=== PATIENT | female | born 1990 | race Caucasian/White ===

== ENCOUNTER 2018-01-04 10:36 | Emergency (ER) | END 2018-01-04 14:51 | disposition home or self-care (01) ==

== ENCOUNTER 2018-04-11 13:52 | Outpatient (CLI) | payer OTHER ==
[~2018-04-11] VITALS: Ht 160 cm; Wt 88.6 kg
[~2018-04-11 13:52] MED LIST: BEN25 PO; CEPH-443 PO
[2018-04-11 14:08] VITALS: Ht 160 cm; Wt 88.6 kg
[2018-04-11 14:10] VITALS: BP 105/57; PULSE 83; RESP 18
[2018-04-11] MEDS ORDERED: FERR325T5 PO (14:13)
[2018-04-11] MEDS ORDERED: PNV11TAB PO (14:13)
[2018-04-11] MEDS ORDERED: ACETAMINOPHEN 500 MG TAB PO STA (16:33)
[2018-04-11] MEDS ORDERED: ACETAMINOPHEN 500 MG TAB ONE (16:40)
--- NOTE | 2018-04-11 18:53 | PN ---
Triage Information Date/Time 04/11/2017 Reason for visit: Headache, blurred vision Weeks of Gestation 34 weeks /Para 3 para 2 Diabetes: none Hypertention: none Additional information 27-year-old with IUP at 34 weeks and twin gestation care with Dr. Garcia. Resented to triage with complaint of headache, blurred vision. She denies any leaking of fluid vaginal bleeding decreased movement .. Denies any history of hypertension. Reports history of gestational diabetes but has not been checking her blood sugars. Patient complains of lower abdominal cramps. Denies any urinary symptoms. Reports her headaches 7 out of 10 Objective Vital Signs Date Temp Pulse Resp B/P (MAP) Pulse Ox O2 O2 Flow FiO2 Time Delivery Rate 04/11/18 98.6 83 18 105/57 Room Air 14:10 (73) Heart Rate: 130's Heart Rate Comments Both fetuses category 1 No contraction Contractions: None Exam General appearance: Alert and oriented x4 appears to be in mild distress. Abdomen: Soft, fundal height larger than dates consistent with twin gestation . Slight suprapubic tenderness noted. No rebound tenderness, no guarding, no rigidity, no CVA tenderness NST: Category 1 for both fetuses and no contraction noted on the monitor neuro exam within normal limits Blood pressures during monitoring within normal. No elevated blood pressure noted Patient was given thousand milligrams of Tylenol with hydration PIH panel performed and showed normal UA consistent with UTI Patient blood sugar: 93 Still continues to have headache rates it 7 out of 10. Results/Medications Result Diagram: 04/11/18 1530 04/11/18 1530 Results 24 hrs Laboratory Tests Test 04/11/18 15:07 04/11/18 15:30 04/11/18 16:45 Urine Color HATTIE Urine Clarity CLOUDY A Urine pH 6.0 Urine Specific Sumner 1.023 Urine Ketones NEGATIVE Urine Nitrite NEGATIVE Urine Bilirubin NEGATIVE Urine Urobilinogen NEGATIVE Urine Leukocyte Esterase 3+ H Urine Microscopic RBC 3 Urine Microscopic WBC 28 H Urine Squamous Epithelial Cells MODERATE Urine Bacteria FEW A Urine Mucus MANY A Urine Hemoglobin NEGATIVE Urine Glucose NEGATIVE Urine Total Protein 1+ H White Blood Count 9.6 Red Blood Count 4.11 L Hemoglobin 9.6 L Hematocrit 31.7 L Mean Corpuscular Volume 77.1 L Mean Corpuscular Hemoglobin 23.4 L Mean Corpuscular Hemoglobin Concent 30.3 L Red Cell Distribution Width 16.2 H Platelet Count 239 Mean Platelet Volume 9.8 Immature Granulocytes % 1.000 H Neutrophils % 57.9 Lymphocytes % 20.5 Monocytes % 5.4 Eosinophils % 14.7 H Basophils % 0.5 Nucleated Red Blood Cells % 0.0 Immature Granulocytes # 0.100 H Neutrophils # 5.5 Lymphocytes # 2.0 Monocytes # 0.5 Eosinophils # 1.4 H Basophils # 0.1 Nucleated Red Blood Cells # 0.0 Prothrombin Time 12.3 Prothrombin Time Ratio 1.0 INR International Normalized Ratio 0.90 Activated Partial Thromboplast Time 26.9 Fibrinogen 544.0 H Sodium Level 136 Potassium Level 3.7 Chloride Level 103 Carbon Dioxide Level 23 Anion Gap 10 Blood Urea Nitrogen 4 L Creatinine 0.39 L Est Glomerular Filtrat Rate mL/min > 60 Glucose Level 124 Uric Acid 4.3 Calcium Level 8.8 Total Bilirubin 0.0 L Direct Bilirubin 0.00 Indirect Bilirubin 0.0 Aspartate Amino Transf (AST/SGOT) 19 Alanine Aminotransferase (ALT/SGPT) 15 Alkaline Phosphatase 129 H Total Protein 6.4 Albumin 3.3 Globulin 3.10 Albumin/Globulin Ratio 1.06 Bedside Glucose 97 Imaging Results PROCEDURE: US OB. Ultrasound cervix CLINICAL INDICATION: Low YU, pain TECHNIQUE: Multiple sonographic images of the pelvis were obtained. The images were reviewed on a PACS workstation. In addition, transvaginal images of the cervix were obtained. COMPARISON: No prior studies are available for comparison. FINDINGS: There is a twin live intrauterine gestation. The cervix is closed and measures 3.9 cm in length. Twin A Cardiac activity is present with 135 beats per minute. There is a vertex presentation. The placenta is anterior. MVP = 6.2 cm Twin B Cardiac activity is present with 135 beats per minute. There is a transverse maternal left presentation. The placenta is anterior. MVP= 5.1 cm RPTAT: AA . IMPRESSION: Normal MVP for twin gestation . Cervix is closed measures 3.9 cm in lengt Disposition: Discharge Assessment/Plan IUP at 34 weeks Twin gestation No evidence of labor or PIH Headache and blurred vision, unclear etiology GDM, discussed with the patient needs to go back tomorrow to her primary OB office to get education for blood sugar monitoring and diet education Risk of uncontrolled diabetes during discussed with the patient in detail Patient was advised to go to the emergency room she continued to have headache. Currently no evidence of PIH Amniotic fluid normal Cramps, no evidence of labor. Symptoms related to UTI Discussed with patient regarding taking antibiotics, Keflex 500 mg 4 times daily for 7 days prescribed Adequate hydration discussed with the patient labor precautions kick count and presents a precaution discussed in detail with the patient. She was advised to go to emergency room if her symptoms does not really resolve and to present to triage if she has any leaking of fluid, vaginal bleeding decreased movement or any other symptoms. Follow-up with primary OB office within 24 hours after discharge from the hospital recommended and discussed All questions were answered to patient's best satisfaction and patient verbalized understanding. BRIAN WATKINS MD Apr 11, 2018 18:53
--- NOTE | 2018-04-11 18:56 | TRIAGE ---
OB Triage Datetime Report Generated by CPN: 04/11/2018 18:55 Datetime: 04/11/2018 17:59 Labor Evaluation Frequency: x2 Monitor Mode: External Duration (sec)2399: 90-100 Quality: Mild Resting Tone Panora: Relaxed Heart Rate FHR Baseline Rate: 125 Monitor Mode: External US FHR Baseline Changes: No Baseline Change Variability: Moderate 6-25 bpm Accelerations: 15X15 Decelerations: None Category: Category I Datetime: 04/11/2018 17:30 Pain Assessment Pain Scale: 7 Pain Presence: Intermittent Pain Type: Ache Pain Location: Head Pain Relief Measures: Comfort Measures Pain Assessment Comments: pt stays she still has a headache Datetime: 04/11/2018 17:02 Labor Evaluation Frequency: x1 Monitor Mode: External Duration (sec)2399: 50 Quality: Mild Resting Tone Panora: Relaxed Heart Rate FHR Baseline Rate: 130 Monitor Mode: External US FHR Baseline Changes: No Baseline Change Variability: Moderate 6-25 bpm Accelerations: 15X15 Decelerations: None Category: Category I Datetime: 04/11/2018 16:44 Bedside Blood Glucose: 97 Datetime: 04/11/2018 16:00 Labor Evaluation Frequency: x1 Monitor Mode: External Duration (sec)2399: 60 Quality: Mild Resting Tone Panora: Relaxed Heart Rate FHR Baseline Rate: 125 Monitor Mode: External US FHR Baseline Changes: No Baseline Change Variability: Moderate 6-25 bpm Accelerations: Prolonged Decelerations: None Category: Category I Datetime: 04/11/2018 15:00 Maternal Assessment Level of Consciousness: Fully Conscious DTR's/Clonus: DTRs 2+ Headache: Occipital; Frontal Blurred Vision: Yes Nausea/Vomiting: Denies RUQ Epigastric Pain: Denies Facial Edema: None Labor Evaluation Frequency: 5-12 Monitor Mode: External Duration (sec)2399: 50-70 Quality: Mild Pattern: Normal: <= 5 Contractions in 10 Minutes Resting Tone Panora: Relaxed Heart Rate FHR Baseline Rate: 130 Monitor Mode: External US FHR Baseline Changes: No Baseline Change Variability: Moderate 6-25 bpm Accelerations: 15X15 Decelerations: None Category: Category I Pain Assessment Pain Scale: 7 Pain Presence: Intermittent Pain Type: Ache Pain Location: Head Pain Goal: 10 Pain Relief Measures: Comfort Measures Vaginal Exam Membrane Status: Intact Datetime: 04/11/2018 14:18 Stage of : OB Triage Assessment Type: Triage Maternal Assessment Level of Consciousness: Fully Conscious DTR's/Clonus: DTRs 2+; No Clonus Headache: Denies Blurred Vision: No Respiratory Effort: Unlabored; Regular Rhythm; Equal Expansion Breath Sounds, Left: Clear and Equal Breath Sounds, Right: Clear and Equal Nausea/Vomiting: Denies RUQ Epigastric Pain: Denies Lower Extremities Edema: None Degree: None Upper Extremities Edema: None Degree: None Facial Edema: None Temperature Route: Oral Fall Risk Assessment History of Falling: (0) No Secondary Diagnosis: (0) No Ambulatory Aid: (0) Bedrest/Nurse Assist IV Therapy: (0) No Gait: (0) Normal/Bedrest/Immobile Mental Status: (0) Oriented to Own Ability Fall Score: 0 Fall Risk Score Definition: No Risk: No action required Labor Evaluation Frequency: x1 Monitor Mode: External Duration (sec)2399: 40 Quality: Mild Resting Tone Panora: Relaxed Heart Rate FHR Baseline Rate: 125 Monitor Mode: External US FHR Baseline Changes: No Baseline Change Variability: Moderate 6-25 bpm Accelerations: 15X15 Decelerations: None Category: Category I Pain Assessment Pain Scale: 7 Pain Presence: Intermittent Pain Type: Ache Pain Location: Head Pain Relief Measures: Comfort Measures Datetime: 04/11/2018 14:15 Time of Arrival: 04/11/2018 13:46 EGA: 34.0 Arrived By: Ambulatory Arrived From: Home Chief Complaint: headache, blurred vision, dizzines, feeling cold for 1.5 weeks. Also pt c/o eugenio malhotra lower abdominal pressure since this am Movement: Present Contractions: Denies/Absent Rupture of Membranes: Denies Vaginal Bleeding: None Vaginal Discharge: Denies Recent Sexual Intercouse: Yes Abdominal Trauma: Not Applicable Patient Complaints: Headache Initial Plan: ROSMERY
== END 2018-04-11 18:51 | disposition home or self-care (01) ==
LOC: OBT 13:52 → L-D 13:53 → OBT 18:51
PROVIDERS: ATTEND Obstetrics & Gynecology
DX: O26.893 Other specified pregnancy related conditions, third trimester (principal); Z3A.34 34 weeks gestation of pregnancy; R51 Headache; H53.8 Other visual disturbances
CPT/HCPCS: 76815; 76817; 80053; 81001; 82962; 84560; 85025; 85384; 85610; 85730; Z7500; Z7610; G0463

== ENCOUNTER 2018-04-20 16:18 | Inpatient (IN) | payer OTHER ==
[~2018-04-20] VITALS: Ht 160 cm; Wt 90.8 kg
[~2018-04-20 16:18] MED LIST changes: -BEN25 PO; +FERR325T5 PO; +PNV11TAB PO
[2018-04-20 16:36] VITALS: Ht 160 cm; Wt 90.8 kg
[2018-04-20 16:37] VITALS: BP 105/60; PULSE 89; RESP 20
[2018-04-20] MEDS ORDERED: ACET500C5 PO (16:41)
[2018-04-20] MEDS: LACTATED RINGER'S 1,000 ML IV SCH ×2 (20:54→21:33)
--- NOTE | 2018-04-20 23:52 | TRIAGE ---
OB Triage Datetime Report Generated by CPN: 04/20/2018 23:52 Datetime: 04/20/2018 23:43 Monitor Mode: External Monitor Mode: External US Datetime: 04/20/2018 23:08 Monitor Mode: External Monitor Mode: External US Datetime: 04/20/2018 22:45 Stage of : Antepartum Datetime: 04/20/2018 22:30 Stage of : Antepartum Datetime: 04/20/2018 22:00 Stage of : Antepartum Temperature Route: Oral Labor Evaluation Frequency: 4-6 Monitor Mode: External Duration (sec)2399: 50-70 Pattern: Normal: <= 5 Contractions in 10 Minutes Resting Tone Lillie: Relaxed Heart Rate FHR Baseline Rate: 135 Monitor Mode: External US Variability: Moderate 6-25 bpm Accelerations: 15X15 Decelerations: None Category: Category I Datetime: 04/20/2018 21:45 Assessment Type: Admission Assessment Vaginal Bleeding: None Maternal Assessment Level of Consciousness: Fully Conscious DTR's/Clonus: DTRs 2+; No Clonus Headache: Denies Blurred Vision: No Respiratory Effort: Unlabored; Regular Rhythm; Equal Expansion Breath Sounds, Left: Clear and Equal Breath Sounds, Right: Clear and Equal Nausea/Vomiting: Denies RUQ Epigastric Pain: Denies Facial Edema: None Fall Risk Assessment History of Falling: (0) No Secondary Diagnosis: (0) No Ambulatory Aid: (0) Bedrest/Nurse Assist IV Therapy: (20) Yes Gait: (0) Normal/Bedrest/Immobile Mental Status: (0) Oriented to Own Ability Fall Score: 20 Fall Risk Score Definition: No Risk: No action required Datetime: 04/20/2018 21:36 Monitor Mode: External Monitor Mode: External US Datetime: 04/20/2018 21:30 Arrived From: Triage Datetime: 04/20/2018 20:50 Monitor Mode: External Datetime: 04/20/2018 20:47 Monitor Mode: External Datetime: 04/20/2018 20:05 Monitor Mode: External Monitor Mode: External US Datetime: 04/20/2018 20:02 Monitor Mode: External Datetime: 04/20/2018 19:57 Monitor Mode: External US Datetime: 04/20/2018 19:55 Monitor Mode: External US Datetime: 04/20/2018 19:38 Stage of : Antepartum Datetime: 04/20/2018 19:18 Stage of : Antepartum Temperature Route: Oral Datetime: 04/20/2018 18:29 Labor Evaluation Frequency: X2 Duration (sec)2399: 40-60 Quality: Mild Pattern: Normal: <= 5 Contractions in 10 Minutes Resting Tone Lillie: Relaxed Heart Rate FHR Baseline Rate: 110 Monitor Mode: External US FHR Baseline Changes: No Baseline Change Variability: Moderate 6-25 bpm Accelerations: 15X15 Decelerations: None Category: Category I Pain Assessment Pain Presence: Constant Pain Type: Ache Pain Location: Head Pain Goal: 0 Datetime: 04/20/2018 18:00 Labor Evaluation Frequency: X2 Monitor Mode: External Duration (sec)2399: 40 Quality: Mild Pattern: Normal: <= 5 Contractions in 10 Minutes Resting Tone Lillie: Relaxed Heart Rate FHR Baseline Rate: 120 Monitor Mode: External US FHR Baseline Changes: No Baseline Change Variability: Moderate 6-25 bpm Accelerations: 10X10 Decelerations: None Category: Category I Pain Assessment Pain Presence: Constant Pain Type: Ache Pain Location: Head Pain Goal: 0 Datetime: 04/20/2018 17:29 Labor Evaluation Frequency: X1 Monitor Mode: External Duration (sec)2399: 60 Quality: Mild Pattern: Normal: <= 5 Contractions in 10 Minutes Resting Tone Lillie: Relaxed Heart Rate FHR Baseline Rate: 130 Monitor Mode: External US FHR Baseline Changes: No Baseline Change Category: Category I Pain Assessment Pain Presence: Constant Pain Type: Ache Pain Location: Head Pain Goal: 0 Vaginal Exam Membrane Status: Intact Datetime: 04/20/2018 17:00 Labor Evaluation Frequency: 0 Monitor Mode: External Heart Rate FHR Baseline Rate: 130 Monitor Mode: External US FHR Baseline Changes: No Baseline Change Variability: Moderate 6-25 bpm Accelerations: 15X15 Decelerations: None Category: Category I Pain Assessment Pain Presence: Constant Pain Type: Ache Pain Location: Head Datetime: 04/20/2018 16:24 Assessment Type: Triage Time of Arrival: 04/20/2018 16:09 EGA: 35.2 Arrived By: Ambulatory Arrived From: Home Chief Complaint: HEADACHE Movement: Present Contractions: Denies/Absent Rupture of Membranes: Denies Vaginal Bleeding: None Vaginal Discharge: Denies Recent Sexual Intercouse: Denies Abdominal Trauma: Not Applicable Patient Complaints: Other Time Provider Notified: 04/20/2018 19:03 Provider Notified: DR. LANCASTER Initial Plan: EFM, BPP, PIH LABS Maternal Assessment Level of Consciousness: Fully Conscious DTR's/Clonus: DTRs 2+; No Clonus Blurred Vision: No Respiratory Effort: Unlabored; Regular Rhythm; Equal Expansion Breath Sounds, Left: Clear and Equal Breath Sounds, Right: Clear and Equal Nausea/Vomiting: Denies RUQ Epigastric Pain: Present Lower Extremities Edema: None Degree: None Upper Extremities Edema: None Degree: None Facial Edema: None Fall Risk Assessment History of Falling: (0) No Secondary Diagnosis: (0) No Ambulatory Aid: (0) Bedrest/Nurse Assist IV Therapy: (0) No Gait: (0) Normal/Bedrest/Immobile Mental Status: (0) Oriented to Own Ability Fall Score: 0 Fall Risk Score Definition: No Risk: No action required Datetime: 04/11/2018 18:37 Labor Evaluation Frequency: x1 Monitor Mode: External Duration (sec)2399: 50 Quality: Mild Resting Tone Lillie: Relaxed Heart Rate FHR Baseline Rate: 125 Monitor Mode: External US FHR Baseline Changes: No Baseline Change Variability: Moderate 6-25 bpm Accelerations: 15X15 Decelerations: None Category: Category I Datetime: 04/11/2018 14:18 Fall Score: 0 Fall Risk Score Definition: No Risk: No action required Datetime: 04/11/2018 14:15 EGA: 34.0
[2018-04-21] MEDS: ACETAMINOPHEN 325 MG TAB PO PRN ×3 (00:37→10:45)
[2018-04-21] MEDS: LACTATED RINGER'S 1,000 ML IV SCH ×2 (05:14→12:56)
--- NOTE | 2018-04-21 12:41 | PREAC ---
Date/Time of Note Date/Time of Note DATE: 04/21/18 TIME: 12:39 Anesthesia Eval and Record Evaluation Time Pre-Procedure Interview DATE: 04/21/18 TIME: 12:39 Age 27 Sex female NPO: 8 hrs Preoperative diagnosis twin, headache oligorrhia Planned procedure C section Past Medical History Past Medical History: Includes GI: Obesity : Gestational age: (35.5) Surgery & Anesthesia Issues No known issue Meds Anticoagulation: No Beta Isma within 24 hr: No Reason Beta Isma not given: Pt. not on B-Isma Reported Medications Acetaminophen* (Tylophen*) 500 Mg Capsule, 500 MG PO prn, TAB 04/20/18 Ferrous Sulfate (Ferrous Sulfate) 325 Mg Tablet.dr, 325 MG PO DAILY 04/11/18 [id number] ( ) 1 Each Tablet, 1 TAB PO DAILY, TAB 04/11/18 Discontinued Scripts Cephalexin* (Keflex*) 500 Mg Capsule, 500 MG PO QID for 7 Days, CAP Prov:SHERIN HERRON PA-C 01/04/18 Current Medications Lactated Ringer's 1,000 ml @ 125 mls/hr Q8H IV Last administered on 04/21/18at 05:14; Admin Dose 125 MLS/HR; Start 04/20/18 at 19:47 Acetaminophen (Tylenol Tab) 650 mg Q4H PRN PO MILD PAIN(1-3)OR ELEVATED TEMP L ast administered on 04/21/18at 10:45; Admin Dose 650 MG; Start 04/21/18 at 01:00 Cefazolin Sodium/ Dextrose 50 ml @ 100 mls/hr ONCE IVPB ; Start 04/21/18 at 13:00; Status UNV Oxytocin/Lactated Ringer's 500 ml @ 125 mls/hr POST IV ; Start 04/21/18 at 13:00; Status UNV Oxytocin/Lactated Ringer's 500 ml @ 0 mls/hr ONCE PRN IV .VAGINAL BLEEDING; Start 04/21/18 at 13:00; Status UNV Methylergonovine Maleate (Methergine) 0.2 mg ONCE PRN IM .VAGINAL BLEEDING; Start 04/21/18 at 13:00; Status UNV Carboprost Tromethamine (Hemabate) 250 mcg ONCE PRN IM .VAGINAL BLEEDING; Start 04/21/18 at 13:00; Status UNV Misoprostol (Cytotec) 1,000 mcg ONCE PRN CO .VAGINAL BLEEDING; Start 04/21/18 at 13:00; Status UNV Meds reviewed: Yes Allergies Coded Allergies: No Known Allergy (Unverified , 01/04/18) Allergies Reviewed: Yes Labs/Studies Labs Reviewed: Reviewed by anesthesiologist Result Diagram: 04/21/18 0709 04/21/18 0709 Laboratory Tests 04/21/18 07:09 test: Positive Studies: ECG (n/a), CXR (n/a) Pre-procedure Exam Last vitals Vital Signs Date Temp Pulse Resp B/P (MAP) Pulse Ox O2 O2 Flow FiO2 Time Delivery Rate 04/20/18 98.2 89 20 105/60 Room Air 16:37 (75) Airway: Adequate mouth opening Mallampati: Mallampati I Teeth: Normal Lung: Normal Heart: Normal ASA Physical Status ASA physical status: 2 Emergency: None Planned Anesthetic Neuraxial: Spinal, Epidural Planned Pain Management Sub-arachniod narcotics Pre-operative Attestations Prior to commencing anesthesia and surgery, the patient was re-evaluated, there was verification of: *The patient's identity *The results of appropriate recent lab work and preoperative vital signs *The above evaluation not changing prior to induction *Anesthetic plan, risk benefits, alternative and complications discussed with patient/family; questions answered; patient/family understands, accepts and wishes to proceed. BALDEMAR CALDERON MD Apr 21, 2018 12:41
[2018-04-21] MEDS ORDERED: morphine SULFATE/PF (10 MG/10 ML) INJ ONE (12:59)
[2018-04-21] MEDS ORDERED: KETOROLAC 30 MG INJ ONE (12:59)
[2018-04-21] MEDS ORDERED: ONDANSETRON 4 MG INJ ONE (12:59)
[2018-04-21] MEDS ORDERED: METOCLOPRAMIDE 10 MG INJ ONE (12:59)
[2018-04-21] MEDS ORDERED: MISOPROSTOL 200 MCG TAB PR PRN ×2 (13:00→15:30)
[2018-04-21] MEDS ORDERED: CEFAZOLIN 2 GM/50 ML (PMX) 50 ML IVPB SCH (13:00)
[2018-04-21] MEDS ORDERED: OXYTOCIN 30 UNITS/LR 500 ML IV SCH ×2 (13:00→15:22)
[2018-04-21] MEDS ORDERED: CARBOPROST 250 MCG INJ IM PRN ×2 (13:00→15:30)
[2018-04-21] MEDS ORDERED: OXYTOCIN 30 UNITS/LR 500 ML IV PRN ×2 (13:00→15:30)
[2018-04-21] MEDS ORDERED: METHYLERGONOVINE 0.2 MG INJ IM PRN ×2 (13:00→15:30)
[2018-04-21] MEDS ORDERED: CITRIC ACID/NA CITRATE 30 ML CUP PO ONE (13:00)
[2018-04-21] MEDS ORDERED: PHENYLephrine (100 MCG/ML) 10ML SYG ONE (13:21)
[2018-04-21] MEDS ORDERED: FENTAnyl 50 MCG/ML VIAL ONE (13:52)
[2018-04-21] MEDS ORDERED: EPHEDrine 25 MG/5 ML SYG ONE (14:03)
[2018-04-21] MEDS ORDERED: OXYTOCIN 30 UNITS/LR 500 ML IV ONE (14:05)
--- NOTE | 2018-04-21 14:38 | PAC ---
Date/Time of Note Date/Time of Note DATE: 04/21/18 TIME: 14:37 Post-Anesthesia Notes Post-Anesthesia Note Last documented vital signs Vital Signs Date Temp Pulse Resp B/P (MAP) Pulse Ox O2 O2 Flow FiO2 Time Delivery Rate 04/20/18 98.2 89 20 105/60 Room Air 16:37 (75) Activity: WNL Respiratory function: WNL Cardiovascular function: WNL Mental status: Baseline Pain reasonably controlled: Yes Hydration appropriate: Yes Nausea/Vomiting absent: No BALDEMAR CALDERON MD Apr 21, 2018 14:38
[2018-04-21] MEDS ORDERED: DIPHENHYDRAMINE 50 MG INJ IV PRN ×3 (15:00→20:00)
[2018-04-21] MEDS ORDERED: morphine 2 MG INJ IV PRN ×6 (15:00→20:00)
[2018-04-21] MEDS ORDERED: KETOROLAC 30 MG INJ IV PRN ×2 (15:00→20:00)
[2018-04-21] MEDS ORDERED: morphine (1 MG/ML) 10ML SYRINGE IV PRN ×3 (15:00)
[2018-04-21] MEDS ORDERED: ONDANSETRON 4 MG INJ IV PRN ×3 (15:00→20:00)
[2018-04-21] MEDS ORDERED: NALOXONE (0.4 MG/ML) INJ IV PRN ×2 (15:00→20:00)
[2018-04-21] MEDS ORDERED: LACTATED RINGER'S 1,000 ML IV SCH (15:22)
[2018-04-21] MEDS ORDERED: NA PHOSPHATE/BIPHOS 133 ML ENEMA PR PRN (15:30)
[2018-04-21] MEDS ORDERED: METHYLERGONOVINE 0.2 MG TAB PO PRN (15:30)
[2018-04-21] MEDS ORDERED: LANOLIN HPA 1 PKT TOP PRN (15:30)
[2018-04-21] MEDS ORDERED: HYDROCODONE/APAP (5/325) TAB PO PRN ×2 (15:30)
--- NOTE | 2018-04-21 15:30 | SIPON ---
Date/Time of Note Date/Time of Note DATE: 04/21/18 TIME: 15:28 Operative Report Preoperative Diagnosis 35.5 weeks with dichorionic diamniotic twins Severe intractable headaches Oliguria Hyperreflexia with impending preeclampsia. Severe anemia Postoperative Diagnosis Same Operation/Procedure Performed Primary low segment transverse section Surgeon see signature line environmental engineering assistant Dr. TEIXEIRA Anesthesia: spinal Estimated blood loss: other Transfusion Required none Specimen Placenta Grafts/Implants none Complications none GIOVANNY LANCASTER MD Apr 21, 2018 15:30
--- NOTE | 2018-04-21 15:57 | OPR ---
DATE OF OPERATION: 04/21/2018 PROCEDURE: Primary low segment transverse section. PREOPERATIVE DIAGNOSES: 1. A 35.5 weeks' with dichorionic diamniotic twins. 2. Severe intractable headaches. 3. Oliguria. 4. Hyperreflexia with impending preeclampsia. 5. Severe anemia. POSTOPERATIVE DIAGNOSES: 1. A 35.5 weeks' with dichorionic diamniotic twins. 2. Severe intractable headaches. 3. Oliguria. 4. Hyperreflexia with impending preeclampsia. 5. Severe anemia. SURGEON: Giovanny Downing MD [employer] TEACHER: Shai Ricks MD ANESTHESIA: Clementine Mooney MD ESTIMATED BLOOD LOSS: About 800 mL. DESCRIPTION OF PROCEDURE: The patient was given spinal anesthesia, placed in the supine position. T he abdomen was prepped and draped and a Russell catheter was placed in the bladder. An incision was ma de 2 cm up the pubic bone for about 10 cm in length. The abdominal cavity was reached. The lower ut erine segment was identified and the bladder flap was made. The uterus was opened in the midline wit h the scalpel and the incision was increased laterally on either side for about 3 inches. The amniot ic fluid of the baby A was ruptured. The baby was delivered as cephalic and the baby was delivered w ithout complication. The cord was clamped and cut. The baby was handed over to the complex case manager te am 1. The second bag was ruptured and the baby was delivered as breech presentation. The feet was f ootling breech and the baby was delivered as normal delivery, delivering the arms first and then appl omer the finger in the baby's mouth and taking the baby out of the womb. The cord was clamped and cu t. The baby was handed over to the complex case manager team 2. The cord blood was obtained from either si de of the cord and the placenta was removed. The uterus was swabbed out. The cervix was opened with ring forceps and the closure of the uterus was done with 2 sutures with a #0 PDS looped suture for t he uterus in 2 layers, imbedding the first line of suture and the hemostasis was good. The tubes and ovaries were normal. A piece of Interceed was placed in the area to prevent adhesion. The abdomina l cavity had been cleaned out. The sponge counts and instrument counts were correct and the peritone um was closed with a 2-0 Vicryl, 0 PDS looped suture for the fascia, 2-0 Vicryl for the subcutaneous tissue and neeraj, Insorb for the skin and Dermabond. The patient tolerated the procedure well and left the OR awake and stable. Sponge counts and instrument counts were correct. Intravenous antibio tics were given for prophylaxis. Blood loss was approximately 800 mL. Dictated By: GIOVANNY VENCES/DOT Conf#: [id number] DID#: [id number]
--- NOTE | 2018-04-21 16:15 | PREOPHP ---
DATE OF ADMISSION: 04/20/2018 HISTORY: This is a 27-year-old female, 3, para 2 with 2 previous vaginal deliveries in 2011 and 2014. The patient with a twin at this time dichorionic diamniotic referred t o me recently in the third trimester by [facility] Her best EDC was 05/23/19 19 and the patient had some complaints that had brought her to the ER a few times. Her oth erwise was unremarkably normal except for she became severely anemic recently with signs of itching a nd temperature and weakness and fever off and on with headaches. The patient has seen me recently. She was seen with normal blood pressure with normal care except for severe anemia, most like ly iron deficiency anemia. She was relating to severe headaches. She was never having migraine head aches in her past and recently she stated she has been having severe headaches that were intractable, becoming milder with Tylenol, but going back up to severe headache to the point where she thought sh e could not even move her neck. Because of this, normal blood pressures, normal protein, a 24-hour u rine collection was advised. The patient brought in yesterday a specimen of urine that was less than 700 mL in 24 hours and she stated it was a 24-hour urine specimen. The proteinuria on that was norm al, but the volume was very low, so she was kept overnight. IV challenge with 300 mL was given and a continuous IV of about 125 mL an hour was given in a 12-hour period. The urinary output was also on the low side around 60 mL in spite of the IV solution. On top of that, she kept having severe intra ctable headaches. The examination showed left-sided hyperreflexia with the possible diagnosis of imp ending PIH 35.5 weeks twin gestation with oliguria and severe anemia. The patient was advised for donnelly. PAST MEDICAL HISTORY: Two vaginal deliveries in the past. She had no other complications. She had no surgeries. The patient had been having NSTs and BPPs and frequent visits to perinatology with rec ommended delivery at 37 weeks. FAMILY HISTORY: Noncontributory. PERSONAL HISTORY: Noncontributory, otherwise. PHYSICAL EXAMINATION: VITAL SIGNS: The vital signs were stable with a normal blood pressure, normal pulse. She was afebri le and with normal respiration with complaints of headaches continuously from the last couple of week s that are coming off and on and stronger every day. HEAD AND NECK: The head and neck was normal. CHEST: Clear. HEART: Normal sinus rhythm. LUNGS: Clear. BREASTS: Soft, nontender, no masses. ABDOMEN: With babies are about 4 pounds each and with normal heart tones with some irregular c ontractions. The pelvic examination with a closed cervix with some effacement with 1 cm dilated. EXTREMITIES: Normal with normal pulses and no edema and hyperreflexia on the left side. DIAGNOSES: 1. A 35.5 weeks twin gestation with oliguria. 2. Severe intractable headaches, possible impending PIH. 3. Severe anemia for which she was advised for a primary section. She has been advised of the possible risks and possible complications of the surgery with her alterna tives and options. Written information was provided. She had no more questions and agreed to go ahe ad with the procedure with full understanding and no more questions. Dictated By: GIOVANNY VENCES/DOT Conf#: [id number] DID#: [id number]
[2018-04-21 17:00] VITALS: BP 106/66; PULSE 63; RESP 18
[2018-04-21] MEDS: CEFAZOLIN 2 GM/50 ML (PMX) 50 ML IVPB SCH (17:19)
[2018-04-21 17:44] VITALS: BP 113/71; PULSE 65; RESP 18
[2018-04-21 18:53] VITALS: BP 115/68; PULSE 73; RESP 18
--- NOTE | 2018-04-21 18:57 | NUR ---
EOSS. PT, IS IN STABLE CONDITION . FUNDUS FIRM NORMAL BLEEDING NO COMPLAINED OF PAIN OR ANY PROBLEM . UNDER OBSERVATION .
[2018-04-21 19:40] VITALS: BP 112/67; PULSE 66; RESP 18
[2018-04-21] MEDS: SENNA/DOCUSATE NA (8.6MG/50MG) TAB PO SCH (21:00)
[2018-04-21] MEDS: IBUPROFEN 800 MG TAB PO SCH (22:00)
[2018-04-22] VITALS: BP 104/54; PULSE 68; RESP 19
[2018-04-22] MEDS: CEFAZOLIN 2 GM/50 ML (PMX) 50 ML IVPB SCH ×2 (01:30→08:19)
[2018-04-22 04:00] VITALS: BP 116/76; PULSE 88; RESP 18
--- NOTE | 2018-04-22 05:05 | PN ---
Date/Time of Note Date/Time of Note DATE: 04/22/18 TIME: 05:03 Assessment/Plan Lines/Catheters IV Catheter Type (from Nrsg): Peripheral IV Subjective 24 Hr Interval Summary Day 1 post Afebrile Stable Tolerating diet Pain controlled Abdomen soft, incision dry Uterus contracted and lochia normal Encouraged ambulation Constitutional: no complaints Feeding: advancing diet Pain Control: mild Detailed Summary Eyes: no complaints ENT: no complaints Respiratory: no complaints Cardiovascular: no complaints Gastrointestinal: no complaints Genitourinary: no complaints Musculoskeletal: no complaints Skin: no complaints Neurologic: no complaints Endocrine: no complaints Lymphatic: no complaints Psychological: no complaints, nl mood/affect Immunologic: no complaints Exam/Review of Systems Vital Signs Vitals Vital Signs Date Temp Pulse Resp B/P (MAP) Pulse Ox O2 O2 Flow FiO2 Time Delivery Rate 04/22/18 98.3 88 18 116/76 98 04:00 (89) 04/21/18 Room Air 18:53 Intake and Output 04/21/18 04/21/18 04/22/18 1515:00 23:00 07:00 IntakeIntake Total 1750 ml OutputOutput Total 1616 ml 400 ml BalanceBalance 1750 ml -1616 ml -400 ml Exam Constitutional: alert, oriented, well developed Psych: no complaints, nl mood/affect Head: normocephalic, atraumatic Eyes: nl conjunctiva, EOMI, nl lids, nl sclera ENMT: nl external ears & nose, nl lips & teeth, nl nasal mucosa & septum, mucosa pink and moist Neck: supple, non-tender Respiratory: clear to auscultation, normal air movement Cardiovascular: regular rate and rhythm, nl pulses Gastrointestinal: soft, nl liver, spleen, non-tender Musculoskeletal: nl extremities to inspection, nl gait and stance Extremities: normal pulses Neurological: INSPECTOR SALVAGE II-XII intact, nl mental status, nl speech, nl strength Skin: nl turgor, rash or lesions Lymph: nl lymph nodes Results Result Diagram: 04/21/18 0709 04/21/18 0709 GIOVANNY LANCASTER MD Apr 22, 2018 05:05
[2018-04-22] MEDS: IBUPROFEN 800 MG TAB PO SCH ×3 (06:00→22:00)
[2018-04-22] MEDS: LACTATED RINGER'S 1,000 ML IV SCH ×3 (06:22→22:00)
[2018-04-22 08:00] VITALS: BP 101/59; PULSE 73; RESP 18
[2018-04-22] MEDS: SENNA/DOCUSATE NA (8.6MG/50MG) TAB PO SCH ×2 (08:19→21:01)
--- NOTE | 2018-04-22 09:20 | NUR ---
SELAM NOTES: Mother has not started pumping for NICU baby. Mother stated that she will call when she is ready. has called WIC for pump for home.
--- NOTE | 2018-04-22 10:21 | OPPN ---
Date/Time of Note Date/Time of Note DATE: 04/22/18 TIME: 10:18 Anesthesia Follow up Anesthesia Follow up Last documented vital signs Vital Signs Date Temp Pulse Resp B/P (MAP) Pulse Ox O2 O2 Flow FiO2 Time Delivery Rate 04/22/18 98.7 73 18 101/59 Room Air 08:00 (73) 04/22/18 98 04:00 Respiratory function: WNL Cardiovascular function: WNL Comments a 27 YEAR S/P DURAMORPH WITH SOPINAL IS DOING WELL . NO PAIN, n/v, ITSHING, HEADACHE, NURAL DEFICIT. BALDEMAR CALDERON MD Apr 22, 2018 10:21
--- NOTE | 2018-04-22 11:45 | NUR ---
called irma vanessa and notified , regarding pt, wants to continue iv pain medication ( Toradol). also regular diet . According to , only full Liquid diet , and continue for iv pain medication to 48 hours.
[2018-04-22] MEDS: KETOROLAC 30 MG INJ IV PRN ×2 (12:01→18:05)
[2018-04-22 12:14] VITALS: BP 104/59; PULSE 80; RESP 18
[2018-04-22 16:02] VITALS: BP 110/62; PULSE 73; RESP 18
--- NOTE | 2018-04-22 18:13 | NUR ---
EOSS. PT, IS IN STABLE CONDITION . FUNDUS FIRM NORMAL BLEEDING NO COMPLAINED OF PAIN OR ANY PROBLEM UNDER OBSERVATION .
[2018-04-22 20:00] VITALS: BP 115/64; RESP 18
[2018-04-22] MEDS ORDERED: ACETAMINOPHEN 500 MG TAB PO PRN (21:30)
[2018-04-22] MEDS: SOD FERRIC GLUC COMPLX 125 MG in SOD CHLORIDE 0.9% 100 ML IVPB SCH (22:00)
[2018-04-23] MEDS: KETOROLAC 30 MG INJ IV PRN (02:59)
[2018-04-23 04:00] VITALS: BP 104/65; PULSE 63; RESP 17
--- NOTE | 2018-04-23 04:59 | NUR ---
Pt VSS. Pt c/o gas pain. Encouraged ambulation. Pt ambulated x2 hallway. Pt [email or web address]. No distress noted. Bonding well with baby.
[2018-04-23] MEDS: LACTATED RINGER'S 1,000 ML IV SCH ×2 (05:10→19:30)
[2018-04-23] MEDS: IBUPROFEN 800 MG TAB PO SCH (06:56)
[2018-04-23] MEDS ORDERED: BISACODYL (EC) 5 MG TAB PO ONE (08:00)
[2018-04-23 08:07] VITALS: BP 107/60; PULSE 67; RESP 18
--- NOTE | 2018-04-23 08:10 | PN ---
Date/Time of Note Date/Time of Note DATE: 04/23/18 TIME: 08:08 Assessment/Plan Lines/Catheters IV Catheter Type (from Nrsg): Peripheral IV Subjective 24 Hr Interval Summary Day 2 after Passing gases afebrile and tolerating diet Patient is unable to tolerate [place] and she breaks through with pain in spite of Toradol We will try tramadol as needed Needs ambulation Incision healing well Constitutional: no complaints Feeding: advancing diet Pain Control: moderate Detailed Summary Eyes: no complaints ENT: no complaints Respiratory: no complaints Cardiovascular: no complaints Gastrointestinal: no complaints Genitourinary: no complaints Musculoskeletal: no complaints Skin: no complaints Neurologic: no complaints Endocrine: no complaints Lymphatic: no complaints Psychological: no complaints, nl mood/affect Immunologic: no complaints Exam/Review of Systems Vital Signs Vitals Vital Signs Date Temp Pulse Resp B/P (MAP) Pulse Ox O2 O2 Flow FiO2 Time Delivery Rate 04/23/18 98.7 63 17 104/65 97 Room Air 04:00 (78) Intake and Output 04/22/18 04/22/18 04/23/18 1515:00 23:00 07:00 IntakeIntake Total 1340 ml OutputOutput Total 2100 ml 500 ml BalanceBalance -760 ml -500 ml Exam Constitutional: alert, oriented, well developed Psych: no complaints, nl mood/affect Head: normocephalic, atraumatic Eyes: nl conjunctiva, EOMI, nl lids, nl sclera ENMT: nl external ears & nose, nl lips & teeth, nl nasal mucosa & septum, mucosa pink and moist Neck: supple, non-tender Respiratory: clear to auscultation, normal air movement Cardiovascular: regular rate and rhythm, nl pulses Gastrointestinal: soft, nl liver, spleen, non-tender Musculoskeletal: nl extremities to inspection, nl gait and stance Extremities: normal pulses Neurological: MAIL PROCESSING CLERK II-XII intact, nl mental status, nl speech, nl strength Skin: nl turgor, rash or lesions Lymph: nl lymph nodes Results Result Diagram: 04/22/18 0729 04/21/18 0709 GIOVANNY LANCASTER MD Apr 23, 2018 08:10
[2018-04-23] MEDS: SENNA/DOCUSATE NA (8.6MG/50MG) TAB PO SCH ×2 (08:39→21:52)
[2018-04-23] MEDS: KETOROLAC 30 MG INJ IV SCH ×2 (13:09→23:59)
[2018-04-23] MEDS: SOD FERRIC GLUC COMPLX 125 MG in SOD CHLORIDE 0.9% 100 ML IVPB SCH (13:18)
[2018-04-23] MEDS ORDERED: KETOROLAC 30 MG INJ IV PRN (14:00)
[2018-04-23 16:14] VITALS: BP 102/57; PULSE 66; RESP 18
--- NOTE | 2018-04-23 16:32 | NUR ---
SS NOTE: BABY IN NICU PT'S BABY, LALY, TWIN B WAS ADMITTED TO NICU DUE TO PREMATURITY AND TRANSIENT TACHYPNEA. GESTATIONAL AGE 35.3WKS, WEIGHT 2330g, 7.8. SW MET WITH STEPHANIE, YULISSA MATTHEWS, 89, AT BEDSIDE. STEPHANIE , S/P C-SEC, ALERT/ORIENTED X4. REPORTED RECOVERING WELL, PAIN UNDER CONTROL. EXPRESSED APPROPRIATE CONCERN ABOUT BABY. REPORTED THAT SHE IS HOPING THAT THEY CAN ALL GO HOME TOGETHER. SW PROVIDED EMOTIONAL SUPPORT. STEPHANIE REPORTED LIVING AT HOME WITH HER /FOB, JUSTIN KIM, 04/21/85, AND THEIR 3 AND 6 YEAR OLD BOYS. REPORTED HAVING OTHER FAMILY IN THE AREA WHO WOULD BE ABLE TO ASSIST WITH THE CHILDREN. STEPHANIE REPORTED [facility] AT [facility]. PLANS TO HAVE INSPECTOR CRYSTAL AT [facility] [place] [facility] IN [place]. DENIED HX OF DRUGS/ETOH/SMOKING. DENIED HX OF DV, MENTAL ILLNESS, DCFS INVOLVEMENT. STEPHANIE IS A HOMEMAKER. FOB WORKS IN CONSTRUCTION. STEPHANIE RECEIVES MEDI-ARTURO AND FOOD STAMPS. DOES NOT HAVE WIC BUT HAS BEEN GIVEN INFO RE: WIC AND WAS ENCOURAGED TO CONTACT THEM. STEPHANIE WAS GIVEN INFO TO THE COUN AND WAS ENCOURAGED TO CONTACT HIM TO START WORKING ON BABY'S MEDI-ARTURO. EL ALSO EDUCATED HER RE: CCS AND ENCOURAGED HER TO COMPLETE THE FORM AND RETURN IT TO RN. NO OTHER ISSUES PRESENT AT THIS TIME. BABY WILL BE DISCHARGED HOME WITH PARENTS WHEN MEDICALLY STABLE. SW WILL CONTINUE TO REMAIN AVAILABLE NEEDED.
--- NOTE | 2018-04-23 18:35 | NUR ---
EOSS, PT, IS IN STABLE CONDITION FUNDUS FIRM NORMAL BLEEDING NO COMPLAINED OF PAIN OR ANY PROBLEM UNDER OBSERVATION .
[2018-04-23 20:10] VITALS: BP 119/72; PULSE 83; RESP 18
[2018-04-23] MEDS: traMADol 50 MG TAB PO PRN (21:53)
[2018-04-24] MEDS: traMADol 50 MG TAB PO PRN ×3 (03:58→15:06)
[2018-04-24 04:15] VITALS: BP 105/69; PULSE 62; RESP 16
--- NOTE | 2018-04-24 06:07 | NUR ---
EOSS: Patient in stable condition. Bonding well with baby. Feeding on demand. Pain management is primary focus. IV restarted for toradol administration.
[2018-04-24] MEDS: KETOROLAC 30 MG INJ IV SCH ×2 (06:14→07:00)
[2018-04-24 08:00] VITALS: BP 103/68; PULSE 60; RESP 18
--- NOTE | 2018-04-24 08:16 | PN ---
Date/Time of Note Date/Time of Note DATE: 04/24/18 TIME: 08:15 Assessment/Plan Lines/Catheters IV Catheter Type (from Nrsg): Peripheral IV Subjective 24 Hr Interval Summary She is having headaches today and she is getting her IV iron treatment for anemia She would probably be discharged in the morning Incision is healing good Tolerating diet and having bowel movement No other issues Constitutional: no complaints, improved, ambulates, BM, flatus, urine output Feeding: advancing diet Pain Control: well controlled Detailed Summary Eyes: no complaints ENT: no complaints Respiratory: no complaints Cardiovascular: no complaints Gastrointestinal: no complaints Genitourinary: no complaints Musculoskeletal: no complaints Skin: no complaints Neurologic: no complaints Endocrine: no complaints Lymphatic: no complaints Psychological: no complaints, nl mood/affect Immunologic: no complaints Exam/Review of Systems Vital Signs Vitals Vital Signs Date Temp Pulse Resp B/P (MAP) Pulse Ox O2 O2 Flow FiO2 Time Delivery Rate 04/24/18 97.9 62 16 105/69 Room Air 04:15 (81) 04/23/18 97 04:00 Exam Constitutional: alert, oriented, well developed Psych: no complaints, nl mood/affect Head: normocephalic, atraumatic Eyes: nl conjunctiva, EOMI, nl lids, nl sclera ENMT: nl external ears & nose, nl lips & teeth, nl nasal mucosa & septum, mucosa pink and moist Neck: supple, non-tender Respiratory: clear to auscultation, normal air movement Cardiovascular: regular rate and rhythm, nl pulses Gastrointestinal: soft, nl liver, spleen, non-tender Musculoskeletal: nl extremities to inspection, nl gait and stance Extremities: normal pulses Neurological: CODING QUALITY COORDINATOR II-XII intact, nl mental status, nl speech, nl strength Skin: nl turgor, rash or lesions Lymph: nl lymph nodes Results Result Diagram: 04/23/18 0804 04/21/18 0709 GIOVANNY LANCASTER MD Apr 24, 2018 08:16
[2018-04-24] MEDS ORDERED: MEASLES,MUMPS,RUBELLA VACCINE INJ SC* ONE (09:00)
[2018-04-24] MEDS ORDERED: DIPHTH/TET/ACEL PERTUSS (ADULT) 0.5 ML VIAL IM* ONE (09:00)
[2018-04-24] MEDS: SENNA/DOCUSATE NA (8.6MG/50MG) TAB PO SCH ×2 (09:42→21:37)
[2018-04-24] MEDS: SOD FERRIC GLUC COMPLX 125 MG in SOD CHLORIDE 0.9% 100 ML IVPB SCH (13:42)
[2018-04-24] MEDS: IBUPROFEN 800 MG TAB PO SCH ×2 (13:43→21:37)
[2018-04-24] MEDS: LACTATED RINGER'S 1,000 ML IV SCH ×2 (14:00→22:00)
[2018-04-24 15:05] VITALS: BP 105/70; PULSE 62; RESP 18
--- NOTE | 2018-04-24 17:19 | NUR ---
OSS: PT V/S STABLE AND WNL, PO PAIN MEDS FOR PAIN MGMT, BREAST PUMP USING, OUT TO NICU TO VISIT BABYB*1, BREAST AND BOTTLE FED BABYA, BONDING WELL WITH BABY
[2018-04-24 20:40] VITALS: BP 108/66; PULSE 65; RESP 16
[2018-04-25] MEDS: traMADol 50 MG TAB PO PRN ×3 (03:38→18:37)
[2018-04-25 04:25] VITALS: BP 97/56; PULSE 53; RESP 16
[2018-04-25] MEDS: LACTATED RINGER'S 1,000 ML IV SCH ×2 (06:00→14:00)
--- NOTE | 2018-04-25 06:35 | NUR ---
EOSS: Patient in stable condition. Bonding well with baby. Feeding on demand. Patient is comfortable with regards to pain.
[2018-04-25] MEDS: IBUPROFEN 800 MG TAB PO SCH ×2 (06:39→14:23)
[2018-04-25 08:40] VITALS: BP 101/55; PULSE 51; RESP 16
[2018-04-25] MEDS: SENNA/DOCUSATE NA (8.6MG/50MG) TAB PO SCH (08:45)
--- NOTE | 2018-04-25 11:48 | PD.PPDC ---
OFFICE CLEANER Discharge Instruction Condition [id number] Patient Condition: [id number] Good Diet [id number] Diet: Pleja9f Resume Regular Diet Activity/Restrictions [id number] Activity: [id number] Normal Activity May Shower [id number] Restrictions: Rmlza4r No Exercising No Lifting No Driving No Sexual Activity Nothing in the Vagina No [place] No Tampons, douche Wound/Drain Care Instructions [id number] Wound/Drain Care Instructions: Vuplg2a Wash with soap and water Keep clean and dry Follow-up Follow-up with Physician: 1, Week/Weeks Return to clinic for Rbehg2Sn BLUEPRINTER Instructions: Qangx6g Fever greater than 101 Chills Worsening abdominal pain Excessive Vaginal Bleeding More than 2 pads per hour Unable to tolerate diet Lzoll4Li OB Instructions: Rfcfb3n Breast Tenderness Depression Blurried Vision Headache [id number] Surgical Instructions: [id number] Incisional Drainage Incisional Redness GIOVANNY LANCASTER MD Apr 25, 2018 11:48
--- NOTE | 2018-04-25 11:52 | DS ---
Date/Time of Note Date/Time of Note DATE: 04/25/18 TIME: 11:49 Obstetrical Discharge Record Final Diagnosis Final Diagnosis: delivered Other Final Diagnosis 35.2 weeks Twin severe headaches. Impending PIH Severe anemia Section Section: Primary Complications Preg induced Hypertension Condition on Discharge Physical Assessment Voiding: Yes Bowel Movement: Yes Breast: Soft, non-tender, Filling Fundus: Firm Abdomen and Incision: Healing well Passing gases with bowel movement Tolerating diet Ambulatory Hemoglobin is stable IV iron 2 times were given Patient has no feeling of symptomatic anemia. Home with instructions To see me as needed or in 1 week Patient is stable. Instructions about -induced hypertension were given and patient understood She has no more headaches Calf Tenderness: No Patient Condition: Good GIOVANNY LANCASTER MD Apr 25, 2018 11:52
--- NOTE | 2018-04-25 17:00 | NUR ---
PATIENT DISCHARGED, BUT STAYING A GUEST IN THE ROOM WITH THE BABY. ALL D/C INSTRUCTIONS GIVEN. VERBALIZED UNDERSTANDING.
== END 2018-04-25 19:30 | disposition home or self-care (01) | DRG 787 ==
LOC: OBT 16:18 → L-D 16:18 → OBT 19:15 → L-D 20:05 → PP1 04-21 16:59
PROVIDERS: ADMIT Obstetrics & Gynecology; ATTEND Obstetrics & Gynecology
PROC: 10D00Z1 Extraction of Products of Conception, Low, Open Approach (ICD-10-PCS; principal; 2018-04-21 13:30)
DX: O60.14X2 Preterm labor third trimester with preterm delivery third trimester, fetus 2 (principal); O14.93 Unspecified pre-eclampsia, third trimester; O99.02 Anemia complicating childbirth; R51 Headache; O30.003 Twin pregnancy, unspecified number of placenta and unspecified number of amniotic sacs, third trimester; Z3A.35 35 weeks gestation of pregnancy; Z37.2 Twins, both liveborn
CPT/HCPCS: 76818; 80053; 81001; 82565; 82575; 84156; 84560; 85025; 85384; 85610; 85730; 86592; 86850; 86900; 86901; 87340; 88307; 99464; G0463; J0690; J1885; J2274; J2370; J2405; J2590; J2765; J2916; J3010; J7120